=== PATIENT | female | born 1950 | race African-American/Black ===

== ENCOUNTER 2017-04-29 11:03 | Inpatient (IN) | payer OTHER ==
[~2017-04-29] VITALS: Ht 160 cm; Wt 82.6 kg
[~2017-04-29 11:03] MED LIST: ALBU6.7H INH; ASPI-991 PO; BENA40TA2; GABA600T2 PO; GLIP10TA11 PO; HYDR25TA9 PO; LEVO88TA2 PO; METF500T PO; SIMV20TA2 PO
--- NOTE | 2017-04-29 11:08 | NUR ---
PT AMBULATORY TO ER BED . C/O LLQ ABDOMINAL PAIN SINCE TUESDAY. PT STATES GETTING WORST. GOWNED AND PLACED ON MONITOR. TACHY ETL DEVELOPER. AWAITNG MD CARRILLO.
--- NOTE | 2017-04-29 11:18 | NUR ---
DR MORGAN AT BEDSIDE FOR EVAL.
[2017-04-29] MEDS ORDERED: MORPHINE SULFATE INJ 2 MG/ML DISP.SYRIN IV ONE ×2 (11:30→14:00)
[2017-04-29] MEDS ORDERED: IV NS 0.9% 500 ML BAG IV ONE (11:30)
[2017-04-29] MEDS ORDERED: ONDANSETRON HCL/PF 4 MG/2 ML VIAL IVP ONE ×2 (11:30→14:00)
[2017-04-29] MEDS ORDERED: ONDANSETRON HCL/PF 4 MG/2 ML VIAL ONE ×2 (11:31→13:52)
[2017-04-29] MEDS ORDERED: MORPHINE SULFATE INJ 4 MG/ML DISP.SYRIN ONE ×2 (11:31→13:43)
[2017-04-29 11:35] LABS: APPEARANCE,URINE Slightly Cloudy (CLEAR); BILIRUBIN,URINE Negative (NEGATIVE); BLOOD, URINE Trace-lysed Ery/uL (NEGATIVE); COLOR,URINE Yellow (YELLOW); KETONES,URINE Negative (NEGATIVE); LEUKOCYTE ESTERASE ,URINE Small (NEGATIVE); NITRITE, URINE Negative (NEGATIVE); PROTEIN,URINE Negative (NEGATIVE); UGLUCOSE Negative (NEGATIVE); UROBILINOGEN,URINE 0.2 EU/dL (0.2)
[2017-04-29 11:37] LABS: BASOPHILS # (AUTO) 0.4 /CMM (0.0-0.2); BASOPHILS % (AUTO) 3.2 % (0.0-2.0); EOSINOPHILS # (AUTO) 0.4 /CMM (0.0-0.7); EOSINOPHILS % (AUTO) 3.4 % (0.0-6.0); HEMATOCRIT 40 % (33-45); HEMOGLOBIN 12.7 g/dL (11.5-14.8); LYMPHOCYTES # (AUTO) 1.9 /CMM (0.8-4.8); LYMPHOCYTES % (AUTO) 16.4 % (20.0-44.0); MEAN CORPUSCULAR HEMOGLOBIN 24 PG (26.0-33.0); MEAN CORPUSCULAR HGB CONC 32 g/dl (31.0-36.0); MEAN CORPUSCULAR VOLUME 76 fL (82-100); MONOCYTES # (AUTO) 0.7 /CMM (0.1-1.30); MONOCYTES % (AUTO) 6.2 % (2.0-12.0); NEUTROPHILS # (AUTO) 8.5 /CMM (1.8-8.9); NEUTROPHILS % (AUTO) 70.8 % (43.0-81.0); PLATELET COUNT (AUTO) 352 /CMM (150-450); RDW COEFFICIENT OF VARIATION 16.6 (11.5-15.0); RED BLOOD CELL COUNT(AUTO) 5.27 MIL/uL (4.0-5.2); WHITE BLOOD COUNT (AUTO) 11.9 K/uL (4.3-11.0)
--- NOTE | 2017-04-29 11:37 | NUR ---
PT TO RADIOLOGY FOR ABDOMINAL CT SCAN VIA WHEELCHAIR.
[2017-04-29 11:46] LABS: BACTERIA,URINE Few /HPF (None Seen); SQUAMOUS EPITHELIAL CELL,UR Moderate /HPF (None Seen); WBC,URINE 51-80 /HPF (0-3)
[2017-04-29 11:47] LABS: CALCIUM, SERUM 9.3 mg/dL (8.5-10.1); CREATININE 0.8 mg/dL (0.6-1.3); POTASSIUM 4.2 mmol/L (3.5-5.1)
[2017-04-29 11:53] LABS: ALBUMIN 3.6 g/dL (3.4-5.0); BILIRUBIN,DIRECT 0.2 mg/dL (0.0-0.2); BILIRUBIN,TOTAL 1.1 mg/dL (0.2-1.0)
--- NOTE | 2017-04-29 12:12 | NUR ---
CALLED SURGERY SUPERVISOR WET POUR DR OSBORNE , ON THE PHONE WITH DR MORGAN
--- NOTE | 2017-04-29 12:16 | NUR ---
CALLED [facility] FOURDRINIER OPERATOR WAS PAGED.
[2017-04-29] MEDS ORDERED: GLIP5TAB26 PO (12:29)
[2017-04-29] MEDS ORDERED: BENA20TA2 PO (12:29)
[2017-04-29] MEDS ORDERED: LORA10TA7 PO (12:29)
[2017-04-29] MEDS ORDERED: ESTR42.5 VG (12:29)
[2017-04-29] MEDS ORDERED: GABA-534 PO (12:29)
[2017-04-29] MEDS ORDERED: ALBU18HF2 IH (12:29)
[2017-04-29] MEDS ORDERED: CALC-7 PO (12:29)
[2017-04-29] MEDS ORDERED: HYDR12.55 PO (12:29)
[2017-04-29] MEDS ORDERED: IBUP-1955 PO (12:29)
[2017-04-29] MEDS ORDERED: OMEP20CA10 PO (12:29)
[2017-04-29] MEDS ORDERED: PRAV40TA3 PO (12:29)
[2017-04-29] MEDS ORDERED: PIPERACILLIN /TAZOBACTAM 3.375 G in IV D5W 50 ML IV ONE (12:30)
[2017-04-29 12:34] LABS: INR 0.94 (0.87-1.13); PROTHROMBIN TIME 9.8 SECS (9.5-12.7)
--- NOTE | 2017-04-29 12:56 | NUR ---
RADIOLOGY AT BEDSIDE FOR CHEST XRAY.
--- NOTE | 2017-04-29 14:42 | NUR ---
REPORT GIVEN TO TIEN. PT AWAITING TRANSFER TO FLOOR.
[2017-04-29 15:00] VITALS: BP 125/68
[2017-04-29 15:15] VITALS: BP 125/68
--- NOTE | 2017-04-29 15:15 | NUR ---
RN NOTES RECEIVED PATIENT FROM ER VIA GURNEY. ALERT AND ORIENTED X4. AMBULATES WITH ASSISTANCE. FAMILY ON BEDSIDE. NO ACUTE DISTRESS, NO SOB NOTED. ABDOMINAL PAIN 6/10 NOTED, NOTIFIED MD, NEW ORDERS NOTED AND CARRIED OUT. PATIENT NPO, ICE CHIPS IS OKAY PER MD. IV SITE INTACT AND PATENT. BED LOCKED, LOW POSITION, SIDERAILS UP X2. CALL LIGHT IN REACH. WILL CONTINUE TO MONITOR ACCORDINGLY.
[2017-04-29] MEDS ORDERED: ONDANSETRON HCL/PF 4 MG/2 ML VIAL IVP PRN (15:30)
[2017-04-29] MEDS ORDERED: Z GUARD REMEDY 2 OZ OINT TP PRN (15:30)
[2017-04-29] MEDS: IV D5/0.45 NACL 1,000 ML IV PRN (15:54)
[2017-04-29] MEDS ORDERED: DEXTROSE 50%-WATER 50 ML DISP.SYRIN IV PRN (16:00)
[2017-04-29] MEDS: MORPHINE SULFATE INJ 2 MG/ML DISP.SYRIN IV PRN ×2 (17:10→22:43)
[2017-04-29] MEDS: BLOOD SUGAR DIAGNOSTIC 1 EACH STRIP IN SCH (17:22)
[2017-04-29] MEDS: PIPERACILLIN /TAZOBACTAM 3.375 G in IV D5W 50 ML IV SCH (17:29)
--- NOTE | 2017-04-29 19:00 | NUR ---
RN CLOSING NOTES NO CHANGES IN PATIENT'S CONDITION. NO ACUTE DISTRESS, NO SOB NOTED. ALL NEEDS ATTENDED AND PROVIDED. KEPT PATIENT SAFE AND COMFORTABLE. BED LOCKED, LOW POSITION, SIDERAILS UP X2. CALL LIGHT IN REACH. ENDORSED TO NIGHT RN FOR BEBETO.
--- NOTE | 2017-04-29 19:30 | NUR ---
MS/RN NOTES RECEIVED PT. SITTING UP IN BED. AWAKE, ALERT AND ORIENTED X4. BREATHING EVEN AND UNLABORED ON ROOM AIR. NO SOB, RESPIRATORY DISTRESS NOTED AT THIS TIME. PT. COMPLAINING OF PAIN LLQ ABDOMINAL PAIN 5/10. WILL ADMINISTER PAIN MEDICATION ORDERED. PT. REMAINS NPO AT THIS TIME. PER DAYSHIFT NURSE MD JANE SAID ICE CHIPS ARE OK. PT. WITH RIGHT AC 20 GAUGE PERIPHERAL IV PRESENT, PATENT AND INTACT ADMINISTERING TO PT. D5 1/2 NS @ 75 ML/HR. PT. FAMILY MEMBER PRESENT AT BEDSIDE. BED LOCKED AND IN LOWEST POSITION. SIDE RAILS UP X2. CALL LIGHT WITHIN REACH, WILL CONTINUE TO MONITOR.
[2017-04-29 20:00] VITALS: BP_SYST 141; BP_SYST 145; BP_DIAS 64; BP_DIAS 73
[2017-04-30] MEDS: PIPERACILLIN /TAZOBACTAM 3.375 G in IV D5W 50 ML IV SCH ×5 (00:04→23:37)
[2017-04-30] MEDS: BLOOD SUGAR DIAGNOSTIC 1 EACH STRIP IN SCH ×5 (00:04→23:42)
[2017-04-30] MEDS: INSULIN REGULAR, HUMAN 100 UNIT/ML 3 ML VIAL SQ PRN ×2 (00:06→05:59)
--- NOTE | 2017-04-30 06:11 | NUR ---
MS/RN NOTES PT. IS LYING IN BED RESTING. BREATHING EVEN AND UNLABORED ON ROOM AIR. NO SOB, RESPIRATORY DISTRESS OR COMPLAINTS OF PAIN NOTED AT THIS TIME. PT. REMAINS NPO AT THIS TIME. PT. WITH RIGHT AC 20 GAUGE PERIPHERAL IV PRESENT, PATENT AND INTACT ADMINISTERING TO PT. D5 1/2 NS @ 75 ML/HR. ALL PT. NEEDS MET. BED LOCKED AND IN LOWEST POSITION. SIDE RAILS UP X2. CALL LIGHT WITHIN REACH, WILL ENDORSE TO DAYSHIFT NURSE FOR CONTINUITY OF CARE.
[2017-04-30 06:37] LABS: BASOPHILS % (AUTO) 0.3 % (0.0-2.0); EOSINOPHILS # (AUTO) 0.5 /CMM (0.0-0.7); EOSINOPHILS % (AUTO) 6.3 % (0.0-6.0); HEMATOCRIT 36 % (33-45); HEMOGLOBIN 11.5 g/dL (11.5-14.8); LYMPHOCYTES # (AUTO) 1.9 /CMM (0.8-4.8); MEAN CORPUSCULAR HEMOGLOBIN 24 PG (26.0-33.0); MEAN CORPUSCULAR HGB CONC 32 g/dl (31.0-36.0); MEAN CORPUSCULAR VOLUME 77 fL (82-100); MONOCYTES # (AUTO) 0.7 /CMM (0.1-1.30); MONOCYTES % (AUTO) 9.1 % (2.0-12.0); NEUTROPHILS # (AUTO) 4.2 /CMM (1.8-8.9); NEUTROPHILS % (AUTO) 58.3 % (43.0-81.0); PLATELET COUNT (AUTO) 277 /CMM (150-450); RDW COEFFICIENT OF VARIATION 17.6 (11.5-15.0); RED BLOOD CELL COUNT(AUTO) 4.72 MIL/uL (4.0-5.2); WHITE BLOOD COUNT (AUTO) 7.3 K/uL (4.3-11.0)
[2017-04-30 07:10] LABS: THYROID STIMULATING HORMONE 2.514 uIU/mL (0.358-3.74)
[2017-04-30 07:17] LABS: BILIRUBIN,TOTAL 1.5 mg/dL (0.2-1.0); CALCIUM, SERUM 8.7 mg/dL (8.5-10.1); CREATININE 0.8 mg/dL (0.6-1.3); MAGNESIUM 2.1 mg/dL (1.8-2.4); PHOSPHORUS 4.1 mg/dL (2.5-4.9); POTASSIUM 3.4 mmol/L (3.5-5.1); TOTAL PROTEIN, SERUM 7.2 g/dL (6.4-8.2)
--- NOTE | 2017-04-30 07:30 | NUR ---
RN OPENING NOTES RECEIVED PATIENT IN BED,ALERT AND ORIENTED X4. NO ACUTE DISTRESS, NO SOB NOTED. DENIES PAIN AT THE MOMENT. IV SITE INTACT AND PATENT. BED LOCKED, LOW POSITION, SIDERAILS UP X2. CALL LIGHT IN REACH. WILL CONTINUE TO MONITOR ACCORDINGLY.
[2017-04-30 08:00] VITALS: BP 113/64
[2017-04-30] MEDS: POTASSIUM CL. PREMIX PERIPHER. 50 ML IV SCH ×2 (13:16→14:20)
[2017-04-30 16:00] VITALS: BP 126/70
[2017-04-30] MEDS: IV D5/0.45 NACL 1,000 ML IV PRN (16:32)
--- NOTE | 2017-05-01 00:30 | NUR ---
RN NOTES 12AM BS CHECKS 132MG/DL, INSULIN NOT GIVEN, PATIENT ON NPO.
--- NOTE | 2017-05-01 04:53 | NUR ---
RN NOTES HOURLY ROUNDINGS, PATIENT HAS BEEN ALERT ORIENTED, NO DISTRESS NOTED FOR THE SHIFT. FALL AND SAFETY PRECAUTIONS OBSERVED. ALL NEEDS ATTENDED.
[2017-05-01] MEDS: PIPERACILLIN /TAZOBACTAM 3.375 G in IV D5W 50 ML IV SCH ×4 (05:01→23:49)
[2017-05-01] MEDS: BLOOD SUGAR DIAGNOSTIC 1 EACH STRIP IN SCH ×4 (05:07→23:50)
--- NOTE | 2017-05-01 05:12 | NUR ---
RN NOTES ACCU CHECK 600 BS 142MG/DL, HUMULIN R NOT GIVEN, PATIENT ON NPO.
[2017-05-01 07:21] LABS: CALCIUM, SERUM 8.4 mg/dL (8.5-10.1); CREATININE 0.8 mg/dL (0.6-1.3); POTASSIUM 3.5 mmol/L (3.5-5.1)
--- NOTE | 2017-05-01 07:30 | NUR ---
RN OPENING NOTES RECEIVE PT. IN BED A&OX4. BREATHING UNLABORED AND EVENLY ON ROOM AIR. NO S/S OF ACUTE DISTRESS. IV FLUIDS RUNNING AT 75 ML/HR. PT. IS NPO EXCEPT ICE CHIPS. BED IS IN LOW, LOCKED POSITION, 2 SIDE RAILS UP, AND INSTRUCTED PT. TO USE CALL LIGHT FOR ASSISTANCE. WILL CONTINUE TO ASSESS AND MONITOR.
[2017-05-01] MEDS: IV D5/0.45 NACL 1,000 ML IV PRN ×2 (07:57→23:55)
[2017-05-01 08:00] VITALS: BP 130/79
[2017-05-01 08:28] LABS: BASOPHILS % (AUTO) 0.4 % (0.0-2.0); EOSINOPHILS # (AUTO) 0.5 /CMM (0.0-0.7); HEMATOCRIT 37 % (33-45); HEMOGLOBIN 11.6 g/dL (11.5-14.8); LYMPHOCYTES % (AUTO) 33.9 % (20.0-44.0); MEAN CORPUSCULAR HEMOGLOBIN 24 PG (26.0-33.0); MEAN CORPUSCULAR HGB CONC 32 g/dl (31.0-36.0); MEAN CORPUSCULAR VOLUME 77 fL (82-100); MONOCYTES # (AUTO) 0.6 /CMM (0.1-1.30); MONOCYTES % (AUTO) 10.3 % (2.0-12.0); NEUTROPHILS # (AUTO) 2.7 /CMM (1.8-8.9); NEUTROPHILS % (AUTO) 46.4 % (43.0-81.0); PLATELET COUNT (AUTO) 301 /CMM (150-450); RDW COEFFICIENT OF VARIATION 17.9 (11.5-15.0); RED BLOOD CELL COUNT(AUTO) 4.78 MIL/uL (4.0-5.2); WHITE BLOOD COUNT (AUTO) 5.8 K/uL (4.3-11.0)
[2017-05-01] MEDS: INSULIN REGULAR, HUMAN 100 UNIT/ML 3 ML VIAL SQ PRN (12:35)
[2017-05-01] MEDS: MORPHINE SULFATE INJ 2 MG/ML DISP.SYRIN IV PRN (15:06)
[2017-05-01 16:00] VITALS: BP 138/75
--- NOTE | 2017-05-01 19:30 | NUR ---
RN CLOSING NOTES PT. FAMILY NEAR BEDSIDE. PT. IN BED A&OX4. BREATHING UNLABORED AND EVENLY ON ROOM AIR. NO S/S OF ACUTE DISTRESS. IV FLUIDS RUNNING AT 75 ML/HR. PT. IS ON CLEAR LIQUID DIET TOLERATING WELL. BED IS IN LOW, LOCKED POSITION, 2 SIDE RAILS UP, AND INSTRUCTED PT. TO USE CALL LIGHT FOR ASSISTANCE. WILL ENDORSE REPORT TO NURSE.
[2017-05-01 20:00] VITALS: BP 132/72
[2017-05-02] MEDS: PIPERACILLIN /TAZOBACTAM 3.375 G in IV D5W 50 ML IV SCH ×4 (05:08→23:27)
[2017-05-02] MEDS: BLOOD SUGAR DIAGNOSTIC 1 EACH STRIP IN SCH ×4 (05:20→21:51)
[2017-05-02 06:45] LABS: BASOPHILS % (AUTO) 0.2 % (0.0-2.0); EOSINOPHILS # (AUTO) 0.4 /CMM (0.0-0.7); EOSINOPHILS % (AUTO) 7.1 % (0.0-6.0); HEMATOCRIT 39 % (33-45); HEMOGLOBIN 12.6 g/dL (11.5-14.8); LYMPHOCYTES % (AUTO) 47.5 % (20.0-44.0); MEAN CORPUSCULAR HEMOGLOBIN 25 PG (26.0-33.0); MEAN CORPUSCULAR HGB CONC 33 g/dl (31.0-36.0); MEAN CORPUSCULAR VOLUME 77 fL (82-100); MONOCYTES # (AUTO) 0.6 /CMM (0.1-1.30); MONOCYTES % (AUTO) 8.9 % (2.0-12.0); NEUTROPHILS # (AUTO) 2.3 /CMM (1.8-8.9); NEUTROPHILS % (AUTO) 36.3 % (43.0-81.0); PLATELET COUNT (AUTO) 336 /CMM (150-450); RDW COEFFICIENT OF VARIATION 17.7 (11.5-15.0); RED BLOOD CELL COUNT(AUTO) 5.03 MIL/uL (4.0-5.2); WHITE BLOOD COUNT (AUTO) 6.3 K/uL (4.3-11.0)
[2017-05-02] MEDS: INSULIN REGULAR, HUMAN 100 UNIT/ML 3 ML VIAL SQ PRN ×3 (06:48→17:21)
[2017-05-02 08:00] VITALS: BP 145/66
--- NOTE | 2017-05-02 08:00 | NUR ---
m/s assistant professor of psychology: initial assessment received pt in bed awake, a/ox4. denies n/v/d at this time, but c/o tenderness to abdomen when palpated. bs present x 4. on ivf, but refusing at this time. continue on clear liquid diet, luis manuel. well. instructed to call for assistance. will continue to monitor.
--- NOTE | 2017-05-02 11:00 | NUR ---
m/s print journalist: md visit seen and examined by dr. yoder at this time.
--- NOTE | 2017-05-02 13:12 | NUR ---
m/s film painter: surgeon f/u seen and examined by dr. guy at this time and no change in diet, continue clear liquids for now as stated. pt aware. family at bedside. will monitor.
[2017-05-02 16:00] VITALS: BP 129/80
--- NOTE | 2017-05-02 16:00 | NUR ---
m/s hard tile setter: notes up in chair at this time. no c/o pain or any discomfort. abdomen remains tender to touch. instructed to call for assistance. will continue to monitor.
--- NOTE | 2017-05-02 18:20 | NUR ---
m/s education counselor: notes resting comfortable in bed, needs attended. voiced no discomfort. tolerating clear liquid. no c/o n/v/d at this time, but abdomen remains tender to touch. at bedside. instructed to call for assistance. will continue to monitor.
--- NOTE | 2017-05-02 19:30 | NUR ---
MS RN OPENING NOTES: PATIENT IN BED, AOX4, ON ROOM AIR, BREATHING EVEN AND UNLABORED. APPEARS CALM AND IN NO DISTRESS. DENIES PAIN AT THIS TIME. BREATH OSUNDS CLEAR TO AUSCULTATION. PIV OVER R WRIST G 22 INTACT AND INFUSING WELL WITH D5 1/25 NS RUNNING AT 75 ML/HR . PROVIDED FOR COMFORT AND SAFETY. BED IN LOWEST AND LOCKED POSITION, SIDERAILS UP X2. WILL CONT TO MONITOR.
[2017-05-02 20:00] VITALS: BP 130/76
[2017-05-02 20:47] VITALS: BP 130/76
--- NOTE | 2017-05-02 22:21 | NUR ---
RN NOTES: BLOOD SUGAR IS 97 MG/DL. NO INSULIN INDICATED AT THIS TIME.
[2017-05-03] MEDS: IV D5/0.45 NACL 1,000 ML IV PRN (02:39)
[2017-05-03] MEDS: PIPERACILLIN /TAZOBACTAM 3.375 G in IV D5W 50 ML IV SCH ×3 (05:48→17:48)
[2017-05-03] MEDS: BLOOD SUGAR DIAGNOSTIC 1 EACH STRIP IN SCH ×4 (06:44→22:27)
[2017-05-03] MEDS: INSULIN REGULAR, HUMAN 100 UNIT/ML 3 ML VIAL SQ PRN ×3 (06:48→17:31)
--- NOTE | 2017-05-03 07:02 | NUR ---
MS RN CLOSING NOTES: PATIENT IN BED, AOX4, ON ROOM AIR, BREATHING EVEN AND UNLABORED. PIV OVER R WRIST G 22 INTACT AND PATENT, INFUSING WELL WITH D5 1/2 NS RUNNING AT 75 ML/HR. BLOOD SUGAR CHECKED AT 157 MG/DL THIS AM, ADMINISTERED 2 UNITS REGULAR INSULIN PER SCALE. PROVIDED FOR COMFORT AND SAFETY. DUE MEDS GIVEN. NO ACUTE CHANGE IN CONDITION NOTED THROUGH SHIFT. BED IN LOWEST AND LOCKED POSITION , SIDERAILS UP X2. WILL ENDORSE TO AM RN FOR BEBETO.
[2017-05-03 08:00] VITALS: BP 144/72
--- NOTE | 2017-05-03 08:00 | NUR ---
m/s beater machine operator: initial assessment received pt in bed awake, a/ox4. denies n/v/d at this time, and no c/o tenderness to abdomen when palpated. bs present x 4. on ivf, but still refusing from time to time. continue on clear liquid diet, luis manuel. well. instructed to call for assistance. will continue to monitor.
--- NOTE | 2017-05-03 12:30 | NUR ---
m/s dental biller: notes pt tolerated full liquid diet. no c/o pain, n/v, or any discomfort. daughter at bedside. call light within reach. will monitor.
--- NOTE | 2017-05-03 14:42 | NUR ---
m/s bedspread folder: md visit seen and examined by dr. salmon with verbal order to start pt on claritin 10mg po daily. order read back and carried out and acknowledged.
[2017-05-03] MEDS: LORATADINE 10 MG TABLET PO SCH (15:18)
[2017-05-03 16:00] VITALS: BP 144/79
--- NOTE | 2017-05-03 18:40 | NUR ---
m/s credit collections clerk: notes up and about in unit accompanied by . needs attended. no distress noted. tolerated full liquid diet. no c/o n/v or any abdominal discomfort. will continue to monitor.
--- NOTE | 2017-05-03 19:30 | NUR ---
RN OPENING NOTES RECEIVED REPORT FROM JOSE MIGUEL JACOBSEN LVN. FOUND Pt AWAKE, RESTING IN BED WATCHING TV. VISITING AT BEDSIDE. NO S/S OF ACUTE DISTRESS OR SOB NOTED. Pt IS A/OX4, VERBAL, ABLE TO MAKE NEEDS KNOWN. NO C/O PAIN AT THIS TIME. Pt IS AMB WITH BRP. ON FULL LIQUID DIET. IV ACCESS LFA #22G, IVF D5 1/2NS @75ML/HR INFUSING WELL. POSSIBLE D/C PLANNING FOR TOMORROW. SAFETY MEASURES IN PLACE. BED LOW, LOCKED, HOB ELEVATED, SIDE RAILS UP, CALL LIGHT AND BEDSIDE TABLE WITHIN REACH. WILL CONTINUE TO MONITOR Pt THROUGHOUT THE NIGHT.
[2017-05-03 20:00] VITALS: BP 139/79
--- NOTE | 2017-05-03 22:30 | NUR ---
ACCUCHECK BG 123. NO INSULIN COVERAGE NEEDED AT THIS TIME.
[2017-05-04] MEDS: PIPERACILLIN /TAZOBACTAM 3.375 G in IV D5W 50 ML IV SCH ×2 (00:56→06:33)
[2017-05-04] MEDS: BLOOD SUGAR DIAGNOSTIC 1 EACH STRIP IN SCH ×2 (06:33→12:11)
--- NOTE | 2017-05-04 06:35 | NUR ---
ACCUCHECK BG 154. ADMINISTERED 2UN OF INSULIN PER SLIDING SCALE.
--- NOTE | 2017-05-04 06:36 | NUR ---
RN CLOSING NOTES NO SIGNIFICANT CHANGES NOTED DURING THE SHIFT. ALL NEEDS MET AND ATTENDED TO. NO S/S OF ACUTE DISTRESS OR SEVERE SOB NOTED DURING THE NIGHT. SAFETY MEASURES IN PLACE. WILL ENDORSE TO DAYSHIFT RN FOR Pt's EBBETO.
[2017-05-04] MEDS: INSULIN REGULAR, HUMAN 100 UNIT/ML 3 ML VIAL SQ PRN ×2 (06:37→12:14)
[2017-05-04 06:59] LABS: BASOPHILS % (AUTO) 0.2 % (0.0-2.0); EOSINOPHILS # (AUTO) 0.5 /CMM (0.0-0.7); HEMATOCRIT 37 % (33-45); LYMPHOCYTES # (AUTO) 3.1 /CMM (0.8-4.8); MEAN CORPUSCULAR HEMOGLOBIN 25 PG (26.0-33.0); MEAN CORPUSCULAR HGB CONC 32 g/dl (31.0-36.0); MEAN CORPUSCULAR VOLUME 76 fL (82-100); MONOCYTES # (AUTO) 0.6 /CMM (0.1-1.30); MONOCYTES % (AUTO) 8.4 % (2.0-12.0); NEUTROPHILS # (AUTO) 2.6 /CMM (1.8-8.9); NEUTROPHILS % (AUTO) 38.4 % (43.0-81.0); PLATELET COUNT (AUTO) 367 /CMM (150-450); RDW COEFFICIENT OF VARIATION 17.6 (11.5-15.0); RED BLOOD CELL COUNT(AUTO) 4.91 MIL/uL (4.0-5.2); WHITE BLOOD COUNT (AUTO) 6.8 K/uL (4.3-11.0)
--- NOTE | 2017-05-04 07:00 | NUR ---
RN Initial notes: Received patient resting in bed. patient alert oriented x4. Nonlabored breathing noted on room air. Patient denies pain at the moment and denies nausea. Iv site on left forearm, 22 gauge, patent and intact. Bed in lowest locked position. Call light within reach. Will continue to monitor.
[2017-05-04 07:19] LABS: CALCIUM, SERUM 8.6 mg/dL (8.5-10.1); CREATININE 0.8 mg/dL (0.6-1.3); MAGNESIUM 2.1 mg/dL (1.8-2.4); PHOSPHORUS 3.8 mg/dL (2.5-4.9); POTASSIUM 3.2 mmol/L (3.5-5.1)
[2017-05-04 08:00] VITALS: BP 143/78
[2017-05-04] MEDS ORDERED: CIPR500S2 PO (08:51)
[2017-05-04] MEDS ORDERED: METR500T PO (08:51)
[2017-05-04] MEDS ORDERED: POTASSIUM CHLORIDE 20 MEQ TAB.PRT.SR PO ONE (09:00)
[2017-05-04] MEDS: LORATADINE 10 MG TABLET PO SCH (09:30)
--- NOTE | 2017-05-04 12:25 | NUR ---
MS RN CLOSING NOTES: PATIENT DISCHARGED HOME PER MD ORDERS. PATIENT STABLE. VITAL SIGNS WITHIN NORMAL RANGE. NON-LABORED BREATHING ON ROOM AIR. PATIENT ATE LUNCH BEFORE LEAVING. PATIENT EDUCATED ON EXISTCARE INSTRUCTIONS. PATIENT EDUCATED TO FOLLOW UP WITH PRIMARY HEALTH CARE PROVIDER WITHIN 3 DAYS. PATIENT ALSO EDUCATED TO FOLLOW UP WITH PHARMACY TO PIZZAMAKER HER ANTIBIOTICS. IV ACCESS REMOVED. PATIENT HAS RECEIVED PNEUMOCOCCAL VACCINE AND INFLUENZA VACCINE SOMEWHERE ELSE. VALUABLES GIVEN TO PATIENT. PATIENT LEFT TO HOME VIA PRIVATE CAR WITH DAUGHTER.
== END 2017-05-04 12:26 | disposition home or self-care (01) | DRG 720 ==
LOC: ER 11:04 → MED 14:32
PROVIDERS: ADMIT Nurse Practitioner Acute Care; ATTEND Nurse Practitioner Acute Care
DX: A41.9 Sepsis, unspecified organism (principal); K76.0 Fatty (change of) liver, not elsewhere classified; K57.20 Diverticulitis of large intestine with perforation and abscess without bleeding; N39.0 Urinary tract infection, site not specified; E11.9 Type 2 diabetes mellitus without complications; I10 Essential (primary) hypertension; B96.20 Unspecified Escherichia coli [E. coli] as the cause of diseases classified elsewhere; E87.6 Hypokalemia; E03.9 Hypothyroidism, unspecified; E78.5 Hyperlipidemia, unspecified; G62.9 Polyneuropathy, unspecified; G89.29 Other chronic pain; J45.909 Unspecified asthma, uncomplicated; Z79.84 Long term (current) use of oral hypoglycemic drugs; Z79.899 Other long term (current) drug therapy; Z90.49 Acquired absence of other specified parts of digestive tract
CPT/HCPCS: 36415; 71010-TC; 80048-TC; 80053-TC; 80061-TC; 80076-TC; 81000-TC; 82962-TC; 83690-TC; 83735-TC; 84100-TC; 84443-TC; 85025-TC; 85730-TC; 87081-TC; 87086-TC; 87186-TC; J1815; J2270; J2405; J2543; J3480; J3490; J7040; J7060

== ENCOUNTER 2017-09-25 20:12 | Emergency (ER) | payer OTHER ==
[~2017-09-25] VITALS: Ht 157.5 cm; Wt 76.7 kg
[~2017-09-25 20:12] MED LIST changes: +ALBU18HF2 IH; -ALBU6.7H INH; -ASPI-991 PO; +BENA20TA2 PO; -BENA40TA2; +CALC-7 PO; +CIPR500S2 PO; +ESTR42.5 VG; +GABA-534 PO; -GABA600T2 PO; -GLIP10TA11 PO; +GLIP5TAB26 PO; +HYDR12.55 PO; -HYDR25TA9 PO; +LORA10TA7 PO; +METR500T PO; +OMEP20CA10 PO; +PRAV40TA3 PO; -SIMV20TA2 PO
--- NOTE | 2017-09-25 20:12 | NUR ---
BB SELF; LEFT ARM, LEFT UPPER LEG PAIN/ HIP, LOWER BACK PAIN S/P FALL 30 MIN MEDICAL SECRETARY. NO SOB. PAIN 01/01. A/OX4 VSS NAD WITH FAMILY AT BEDSIDE. WILL CONTINUE TO MONITOR FOR ANY CHANGES DURING THE SHIFT.
[2017-09-25] MEDS ORDERED: HYDROCODONE/APAP 5/325MG 1 EACH TABLET PO ONE (20:30)
[2017-09-25] MEDS ORDERED: HYDROCODONE/APAP 5/325MG 1 EACH TABLET ONE (20:37)
--- NOTE | 2017-09-25 20:45 | NUR ---
FURNACE CONVERTER AT BEDSIDE
--- NOTE | 2017-09-25 21:08 | NUR ---
PT BACK FROM RADIOLOGY
[2017-09-25 22:37] VITALS: BP 166/95
== END 2017-09-25 22:38 | disposition home or self-care (01) ==
LOC: ER 20:16
DX: S40.022A Contusion of left upper arm, initial encounter (principal); M54.5 Low back pain; I10 Essential (primary) hypertension; J45.909 Unspecified asthma, uncomplicated; E11.9 Type 2 diabetes mellitus without complications; M19.90 Unspecified osteoarthritis, unspecified site; Z88.5 Allergy status to narcotic agent; Z79.84 Long term (current) use of oral hypoglycemic drugs; W18.2XXA Fall in (into) shower or empty bathtub, initial encounter; Y93.89 Activity, other specified; Y92.89 Other specified places as the place of occurrence of the external cause; Y99.8 Other external cause status
CPT/HCPCS: 72110; 72170; 73060; 73080; 99284; A4606; Z7610

== ENCOUNTER 2023-09-26 10:51 | Emergency (ER) | payer MEDICARE, OTHER ==
[~2023-09-26] VITALS: Ht 160 cm; Wt 70.3 kg
[~2023-09-26 10:51] MED LIST changes: -BENA20TA2 PO; +BENA20TA9 PO; -OMEP20CA10 PO; +OMEP20CA15 PO
[2023-09-26] MEDS ORDERED: IBUPROFEN 600 MG TABLET ONE (11:47)
[2023-09-26] MEDS: IBUPROFEN 600 MG TABLET PO ONE (11:48)
[2023-09-26] MEDS ORDERED: IBUP-1957 PO (11:59)
[2023-09-26 12:28] VITALS: BP 148/86; TEMP 98.2; O2SAT 99
== END 2023-09-26 12:29 | disposition home or self-care (01) ==
LOC: ER 10:54
DX: M25.562 Pain in left knee (principal); I10 Essential (primary) hypertension; J45.909 Unspecified asthma, uncomplicated; E11.9 Type 2 diabetes mellitus without complications; M19.90 Unspecified osteoarthritis, unspecified site; Z88.8 Allergy status to other drugs, medicaments and biological substances; Z79.84 Long term (current) use of oral hypoglycemic drugs; Z79.899 Other long term (current) drug therapy
CPT/HCPCS: 73564-TC

== ENCOUNTER 2024-02-14 19:36 | Emergency (ER) | payer MEDICARE, OTHER ==
[~2024-02-14] VITALS: Ht 167.6 cm; Wt 77.1 kg
[~2024-02-14 19:36] MED LIST changes: +IBUP-1957 PO
[2024-02-14 21:19] VITALS: TEMP 98.5
[2024-02-14 21:58] VITALS: BP 156/94; O2SAT 94
[2024-02-14] MEDS ORDERED: ACETAMINOPHEN ES 500 MG TABLET ONE (21:59)
[2024-02-14] MEDS: ACETAMINOPHEN 325 MG TABLET PO ONE (22:01)
== END 2024-02-14 22:33 | disposition home or self-care (01) ==
LOC: ER 19:38
DX: S00.03XA Contusion of scalp, initial encounter (principal); S16.1XXA Strain of muscle, fascia and tendon at neck level, initial encounter; S09.8XXA Other specified injuries of head, initial encounter; R42 Dizziness and giddiness; R11.0 Nausea; I10 Essential (primary) hypertension; J45.909 Unspecified asthma, uncomplicated; M19.90 Unspecified osteoarthritis, unspecified site; E11.40 Type 2 diabetes mellitus with diabetic neuropathy, unspecified; E07.9 Disorder of thyroid, unspecified; Z91.040 Latex allergy status; Z87.19 Personal history of other diseases of the digestive system; W01.0XXA Fall on same level from slipping, tripping and stumbling without subsequent striking against object, initial encounter; Y93.89 Activity, other specified; Y92.89 Other specified places as the place of occurrence of the external cause; Y99.8 Other external cause status
CPT/HCPCS: 70450-TC; 72125-TC